=== PATIENT | male | born 1965 | race Caucasian/White ===

== ENCOUNTER 2018-09-03 10:19 | Emergency (ER) | payer OTHER, MEDICAID ==
--- NOTE | 2018-09-03 12:09 | EDPHY ---
H & P Time Seen by Provider: 09/03/18 12:00 HPI/ROS: Chief complaint. Seizure HPI. 53-year-old male with history of previous seizure had a seizure yesterday. He was on the street had a seizure fell down struck his face. He bit his tongue. Today he has bruising across his cheeks and face. He also complains of some upper neck pain. No other back pain. Denies chest pain shortness of breath. No abdominal pain. His last seizure was 2 years ago. He takes Keppra for his seizures. He has been compliant with his medication ROS 10 systems were reviewed and negative with the exception of the elements mentioned in the history of present illness Past Medical/Surgical History: Seizure disorder, schizoaffective disorder Social History: Single, nonsmoker, no alcohol Smoking Status: Never smoked Physical Exam: General Appearance: Alert well-developed male mild distress vital signs stable Eyes: Pupils equal and round no pallor or injection. ENT, facial bruising around both eyes. Swollen nose. No septal hematoma. Bitten tongue with some purulence. No dental trauma Respiratory: There are no retractions, lungs are clear to auscultation. Cardiovascular: Regular rate and rhythm. Gastrointestinal: Abdomen is soft and nontender, no masses, bowel sounds normal. Neurological: Awake and alert, sensory and motor exams grossly normal. Skin: Warm and dry, no rashes. Musculoskeletal: Upper cervical spine tenderness Extremities symmetrical, full range of motion. Psychiatric: Patient is oriented X 3, there is no agitation. Constitutional: Initial Vital Signs Temperature (C) 36.7 C 09/03/18 10:33 Heart Rate 82 09/03/18 10:33 Respiratory Rate 18 09/03/18 10:33 Blood Pressure 119/87 H 09/03/18 10:33 O2 Sat (%) 96 09/03/18 10:33 O2 Delivery Mode Room Air Allergies/Adverse Reactions: No Known Allergies Allergy (Verified 07/17/13 13:52) Home Medications: Medication Instructions Recorded ARIPiprazole [Abilify 10 mg (RX)] 10 mg PO DAILY 07/17/13 Diazepam [Valium 5 MG (RX)] 07/17/13 Levothyroxine [Synthroid 25 mcg 25 mcg PO DAILY06 07/17/13 (RX)] [place] Carbonate [Tool 07/17/13 Carbonate Tab 300 mg (RX)] Propranolol Sr [Inderal LA 60mg 60 mg PO 07/17/13 (RX)] cloZAPine [Clozaril (RX)] 07/17/13 Amoxicillin/Clavulanate Pot 875 mg PO BID #14 tab 09/03/18 [Augmentin 875 MG TAB (*)] Medical Decision Making - Diagnostics Imaging Results: Imaging Impressions Head CT 09/03/18 12:10 Impression: 1. No definite intracranial hemorrhage or epidural/subdural hematoma, although suboptimal due to patient motion artifact. 2. Suspect nondisplaced right anterior maxillary wall/inferior orbital rim, and right nasal bone fractures. 3. Mild mucosal thickening right maxillary sinus without definite sinus wall fracture, fluid, or zygomatic arch fracture. Findings and recommendations discussed with Emergency Department physician, Yaakov Carbone at 1259 hour, 09/03/2018. Final report concurs with initial preliminary interpretation. Facial Bones X-Ray 09/03/18 12:23 Impression: 1. No definite displaced facial bone fracture. 2. No fluid in the paranasal sinuses. 3. Recent CT brain demonstrates possible nondisplaced right inferior orbital rim /sinus wall and right nasal bone fractures. 4. Consider maxillofacial CT if there is continued clinical concern. CT head shows no evidence of intracranial bleeding or skull fracture. Probable people nondisplaced right inferior orbital fracture. Reviewed by me and discussed with Facial bone x-rays interpreted by me is normal Head CT shows no intracranial bleeding. Probable right anterior maxillary wall inferior orbital rim and right nasal bone fractures. Cervical spine CT reviewed by me and discussed with Dr. Kohler is normal Procedures: Seizure precaution Augmentin, Keppra orally ED Course/Re-evaluation: Re-evaluation 2:45 p.m.. Patient is stable. He and I discussed imaging and lab results. We discussed treatment plan including recommendation for follow- up with [facility] as well as neurologist. He expresses understanding and agreement Differential Diagnosis: Seizure with facial trauma. I considered facial fractures per, intracranial bleeding, cervical spine injury. - Data Points Medications Given: Discontinued Medications Amoxicillin/Clavulanate Potassium (Augmentin 875mg) 875 mg PO EDNOW ONE PRN Reason: Protocol Stop: 09/03/18 13:03 Last Admin: 09/03/18 13:14 Dose: 875 mg Levetiracetam (Keppra) 500 mg PO EDNOW ONE Stop: 09/03/18 13:03 Last Admin: 09/03/18 13:14 Dose: 500 mg Departure - Departure Disposition: Home, Routine, Self-Care Clinical Impression: Seizure Facial fracture due to fall Qualifiers: Encounter type: initial encounter Fracture type: closed Qualified Code(s): S02.92XA - Unspecified fracture of facial bones, initial encounter for closed fracture; W19.XXXA - Unspecified fall, initial encounter; W19.XXXA - Unspecified fall, initial encounter Condition: Good Instructions: Recurrent Seizures in Adults (ED), Facial Fracture (ED) Additional Instructions: Make sure you take your Keppra and medications as scheduled Augmentin as antibiotic twice daily to prevent infection Return for worsening face pain or another seizure. Follow-up with [facility] and Neurology Referrals: [facility] [Other] - As per Instructions Nimesh Colunga MD [Medical Doctor] - 2-3 days, call for appt. Armando Van MD [Medical Doctor] - 2-3 days, call for appt. Prescriptions: Amoxicillin/Clavulanate Pot [Augmentin 875 MG TAB (*)] 875 mg PO BID #14 tab
[2018-09-03] MEDS ORDERED: levETIRAcetam 500 MG TAB PO ONE (13:02)
[2018-09-03] MEDS ORDERED: AMOXICILLIN/CLAVULANATE POT 875/125 MG TAB PO ONE (13:02)
[2018-09-03 15:04] VITALS: BP 132/69
== END 2018-09-03 15:02 | disposition home or self-care (01) ==
DX: S02.92XA Unspecified fracture of facial bones, initial encounter for closed fracture (principal); R56.9 Unspecified convulsions; W19.XXXA Unspecified fall, initial encounter

== ENCOUNTER 2018-09-12 08:08 | Emergency (ER) | payer OTHER, MEDICAID ==
[2018-09-12 08:16] VITALS: BP 119/84
--- NOTE | 2018-09-12 08:46 | EDPHY ---
H & P Stated Complaint: seizure Time Seen by Provider: 09/12/18 08:17 HPI/ROS: CHIEF COMPLAINT: "I felt like I might have a seizure" HISTORY OF PRESENT ILLNESS: 53-year-old male with schizophrenia and seizure disorder presents with an aura of seizure. When he awoke this morning, he felt anxious and felt like he might have a seizure. He had no particular aura. He took his usual dose of Keppra this morning and now feels back to normal. He was seen in this emergency department 10 days ago after a seizure. During that seizure, he fell forward and struck his face. CT scan of the facial bones reveal possible nondisplaced fractures. CT scan of the brain was unremarkable. He takes Keppra twice daily and has not missed any doses. REVIEW OF SYSTEMS: complete 10 point ROS reviewed and is negative except for the noted elements in the HPI Source: Patient - Personal History Current Tetanus/Diphtheria Vaccine: Yes Current Tetanus Diphtheria and Acellular Pertussis (TDAP): Yes - Medical/Surgical History Hx Asthma: No Hx Chronic Respiratory Disease: No Hx Diabetes: No Hx Cardiac Disease: No Hx Renal Disease: No Hx Cirrhosis: No Hx Alcoholism: No Hx HIV/AIDS: No Hx Splenectomy or Spleen Trauma: No Other PMH: Psych: schizo-affective, seizures - Social History Smoking Status: Never smoked Alcohol Use: Sober Drug Use: None - Physical Exam Exam: General Appearance: Alert, pleasant, speaks very softly Eyes: Pupils equal and round, no conjunctival pallor or injection, bilateral periorbital ecchymosis ENT, Mouth: Mucous membranes moist, tympanic membranes occluded by wax Neck: Normal inspection, nontender, range of motion without pain Respiratory: Lungs are clear to auscultation Cardiovascular: Regular rate and rhythm Gastrointestinal: Abdomen is soft and nontender Neurological: Alert, oriented x3, cranial nerves II through XII intact, motor 5 /5, sensory intact to light touch, normal gait Skin: Warm and dry, no rash Extremities: Normal inspection Psychiatric: Odd affect Constitutional: Initial Vital Signs Temperature (C) 36.9 C 09/12/18 08:14 Heart Rate 84 09/12/18 08:14 Respiratory Rate 16 09/12/18 08:14 Blood Pressure 119/84 H 09/12/18 08:14 O2 Sat (%) 99 09/12/18 08:14 O2 Delivery Mode Room Air Allergies/Adverse Reactions: No Known Allergies Allergy (Verified 09/12/18 08:12) Home Medications: Medication Instructions Recorded Diazepam [Valium 5 MG (RX)] 07/17/13 Levothyroxine [Synthroid 25 mcg 25 mcg PO DAILY06 07/17/13 (RX)] [place] Carbonate [[place] 07/17/13 Carbonate Tab 300 mg (RX)] cloZAPine [Clozaril (RX)] 07/17/13 Keppra 09/12/18 Zyprexa 09/12/18 Medical Decision Making ED Course/Re-evaluation: This patient presents with an aura of a seizure, now resolved. On exam, he has bilateral periorbital ecchymosis. I reviewed his ED record. There is no evidence of basilar skull fracture. The periorbital ecchymosis is because of facial trauma and not basilar skull fractures. Patient is feeling of aura of seizure resolved. He was able to ambulate to the emergency department with a steady gait. Safe/stable for d/c. f/u neuro. Differential Diagnosis: Differential diagnosis includes though it is not limited to status epilepticus, hypoglycemia, intracranial hemorrhage, CVA, benzodiazepine withdrawal, alcohol withdrawal, epilepsy. Departure - Departure Disposition: Home, Routine, Self-Care Clinical Impression: Aura of seizure Condition: Good Instructions: Liquids and Hydration for Athletes (ED), Epilepsy (ED) Additional Instructions: Continue taking Keppra as prescribed. Follow-up with ENT as previously suggested. Follow-up with Neurology. Referrals: [facility] [Other] - 1-2 days without fail
== END 2018-09-12 09:31 | disposition home or self-care (01) ==
DX: G40.409 Other generalized epilepsy and epileptic syndromes, not intractable, without status epilepticus (principal); Z79.899 Other long term (current) drug therapy